=== PATIENT | female | born 1935 | race Caucasian/White ===

== ENCOUNTER 2017-12-30 06:58 | Emergency (ER) | payer MEDICARE, OTHER ==
[~2017-12-30] VITALS: Ht 157.5 cm; Wt 64.0 kg
[~2017-12-30 06:58] MED LIST: DIOV320T PO; MEDR4PAK3 PO; SYNT88TA PO
[2017-12-30 07:08] VITALS: BP 243/110; PULSE 86; RESP 24; TEMP 97.4; O2SAT 100
[2017-12-30] MEDS ORDERED: FLUT1INH5 INH (07:16)
[2017-12-30] MEDS ORDERED: LEVO100T5 PO (07:16)
[2017-12-30] MEDS ORDERED: LOSA100T PO (07:16)
[2017-12-30] MEDS ORDERED: ALBUAER3 INH ×2 (07:17→09:09)
--- NOTE | 2017-12-30 07:20 | PD ---
HPI Chief Complaint: Respiratory Symptoms Time Seen by Provider: 07:12 Travel History International Travel<30 days: No Contact w/Intl Traveler<30days: No Traveled to known affect area: No History of Present Illness HPI Patient is a 82-year-old female who presents the emergency room with complaints of asthma exacerbation. Patient reports that she has history of asthma, reports that for the past week, she has had increased wheezing. Patient reports that she recently developed a dry cough, denies any fever or chills. Patient did try using her nebulizer treatments without any relief of symptoms. Patient reports that nothing is making her asthma exacerbation better or worse. Patient thinks that maybe the weather brings on her asthma exacerbation. Patient reports no chest pain with her shortness of breath. Patient reports that she has never been intubated for asthma exacerbation, the last time she was admitted to the hospital for asthma exacerbation was a few years ago. Patient is a non-smoker, patient with no other complaints at this time. Patient received 125 mg of Solu-Medrol as well as neb treatment by EMS prior to arrival to the emergency room. PFSH Past Medical History Asthma: Yes Heart Rhythm Problems: No Cardiac Catheterization: No Cardiovascular Problems: No High Cholesterol: No Congestive Heart Failure: No COPD: Yes Diabetes: No Endocrine: Yes Genitourinary: No Hypertension: Yes Immune Disorder: No Musculoskeletal: No Neurologic: No Reproductive: No Respiratory: Yes Myocardial Infarction: No Thyroid Disease: Yes (hypothyroid) Past Surgical History Abdominal Surgery: Yes (APPENDECTOMY) Appendectomy: Yes Cardiac Surgery: No Coronary Artery Bypass Graft: No Ear Surgery: No Endocrine Surgery: No Eye Surgery: No Genitourinary Surgery: No Gynecologic Surgery: Yes (HYSTERECTOMY) Hysterectomy: Yes Oral Surgery: No Thoracic Surgery: No Other Surgery: Yes (HEMORRHOIDECTOMY) Social History Alcohol Use: No Tobacco Use: No (QUIT IN THE ) Substance Use: No Allergies-Medications (Allergen,Severity, Reaction): Coded Allergies: Sulfa (Sulfonamide Antibiotics) (Unverified Allergy, Severe, WATER BLISTERS, 12/30/17) Reported Meds & Prescriptions Reported Meds & Active Scripts Active Reported Proair Hfa 8.5 GM Inh (Albuterol Sulfate) 90 Mcg/Act Aer 1 Puff INH Q4H PRN 108 mcg/actuation Arnuity Ellipta (Fluticasone Furoate (Inhalatio) 200 Mcg Inh 1 Inh INH DAILY Levothyroxine (Levothyroxine Sodium) 100 Mcg Tab Unknown Dose PO DAILY Losartan (Losartan Potassium) 100 Mg Tab 100 Mg PO DAILY Review of Systems General / Constitutional: No: Fever, Chills Eyes: No: Visual changes HENT: No: Headaches Cardiovascular: No: Chest Pain or Discomfort Respiratory: Positive: Cough, Shortness of Breath, Wheezing Gastrointestinal: No: Abdominal Pain Genitourinary: No: Dysuria Musculoskeletal: No: Pain Skin: No Rash Neurologic: No: Weakness Psychiatric: No: Depression Endocrine: No: Polydipsia Hematologic/Lymphatic: No: Easy Bruising Physical Exam Narrative GENERAL: Moderate distress SKIN: Focused skin assessment warm/dry. HEAD: Atraumatic. Normocephalic. EYES: Pupils equal and round. No scleral icterus. No injection or drainage. ENT: No nasal bleeding or discharge. Mucous membranes pink and moist. NECK: Trachea midline. No JVD. CARDIOVASCULAR: Regular rate and rhythm. No murmur appreciated. RESPIRATORY: No accessory muscle use. Patient with diffuse wheezing to bilateral lungs. Breath sounds equal bilaterally. GASTROINTESTINAL: Abdomen soft, non-tender, nondistended. Hepatic and splenic margins not palpable. MUSCULOSKELETAL: No obvious deformities. No clubbing. No cyanosis. No edema. NEUROLOGICAL: Awake and alert. No obvious cranial nerve deficits. Motor grossly within normal limits. Normal speech. PSYCHIATRIC: Appropriate mood and affect; insight and judgment normal. Data Data Last Documented VS Vital Signs Date Time Temp Pulse Resp B/P (MAP) Pulse Ox O2 Delivery O2 Flow Rate FiO2 12/30/17 08:16 84 20 182/85 (117) 98 Room Air 12/30/17 08:14 2.00 12/30/17 07:08 97.4 Orders Orders Complete Blood Count With Diff (12/30/17 07:16) Comprehensive Metabolic Panel (12/30/17 07:16) Chest, Single Ap (12/30/17 07:16) Ecg Monitoring (12/30/17 07:16) Iv Access Insert/Monitor (12/30/17 07:16) Oximetry (12/30/17 07:16) Oxygen Administration (12/30/17 07:16) Albuterol-Ipratropium Neb (Duoneb Neb) (12/30/17 07:30) Sodium Chloride 0.9% Flush (Ns Flush) (12/30/17 07:30) Magnesium Sulfate 1 Gm Premix (Magnesium (12/30/17 07:30) Labs Laboratory Tests Test 12/30/17 07:21 White Blood Count 8.4 TH/MM3 Red Blood Count 4.06 MIL/MM3 Hemoglobin 13.3 GM/DL Hematocrit 39.3 % Mean Corpuscular Volume 96.9 FL Mean Corpuscular Hemoglobin 32.8 PG Mean Corpuscular Hemoglobin Concent 33.8 % Red Cell Distribution Width 14.1 % Platelet Count 280 TH/MM3 Mean Platelet Volume 8.1 FL Neutrophils (%) (Auto) 44.1 % Lymphocytes (%) (Auto) 36.3 % Monocytes (%) (Auto) 8.5 % Eosinophils (%) (Auto) 10.5 % Basophils (%) (Auto) 0.6 % Neutrophils # (Auto) 3.7 TH/MM3 Lymphocytes # (Auto) 3.0 TH/MM3 Monocytes # (Auto) 0.7 TH/MM3 Eosinophils # (Auto) 0.9 TH/MM3 Basophils # (Auto) 0.0 TH/MM3 CBC Comment DIFF FINAL Differential Comment Blood Urea Nitrogen 9 MG/DL Creatinine 0.98 MG/DL Random Glucose 107 MG/DL Total Protein 6.9 GM/DL Albumin 3.5 GM/DL Calcium Level 8.8 MG/DL Alkaline Phosphatase 134 U/L Aspartate Amino Transf (AST/SGOT) 20 U/L Alanine Aminotransferase (ALT/SGPT) 20 U/L Total Bilirubin 0.7 MG/DL Sodium Level 141 MEQ/L Potassium Level 3.9 MEQ/L Chloride Level 106 MEQ/L Carbon Dioxide Level 25.7 MEQ/L Anion Gap 9 MEQ/L Estimat Glomerular Filtration Rate 54 ML/MIN [facility] Medical Decision Making Medical Screen Exam Complete: Yes Emergency Medical Condition: Yes Medical Record Reviewed: Yes Interpretation(s) Vital Signs Date Time Temp Pulse Resp B/P (MAP) Pulse Ox O2 Delivery O2 Flow Rate FiO2 12/30/17 07:08 97.4 86 24 243/110 (154) 100 Differential Diagnosis Asthma exacerbation, pneumonia, influenza, viral syndrome Narrative Course Patient is an 82-year-old female who presents the emergency room with complaints of an asthma exacerbation. Symptoms have been ongoing and persistent for the past week. Patient has received 125 mg of IV Solu-Medrol as well as 1 neb treatment by EMS prior to arrival to the emergency room. During the course of the patients emergency department visit, the patients history, examination, and differential diagnosis were reviewed with the patient. The patient was placed on a chute worker with oximetry and frequent blood pressure monitoring. The patient had an IV access obtained and blood work sent for analysis. The patient was initially provided Solu-Medrol 125 mg IV as well as 1 neb treatment. 3 DuoNeb's were ordered in the emergency room along with IV magnesium. The patients laboratory studies were reviewed and remarkable for CBC & BMP Diagram 12/30/17 07:21 Total Protein 6.9, Albumin 3.5, Calcium Level 8.8, Alkaline Phosphatase 134 H, Aspartate Amino Transf (AST/SGOT) 20, Alanine Aminotransferase (ALT/SGPT) 20, Total Bilirubin 0.7 Radiology studies were reviewed and remarkable for Last Impressions Chest X-Ray 12/30/17 0716 Signed Impressions: CONCLUSION: No acute cardiopulmonary disease. Patient reevaluated, patient feeling much at this time. Lungs are clear to auscultation. I reviewed all labs and all studies with patient in detail, patient will follow-up with her primary care doctor and will return to the emergency room as needed. Diagnosis Primary Impression: Asthma exacerbation Qualified Codes: J45.901 - Unspecified asthma with (acute) exacerbation Patient Instructions: General Instructions Additional Instructions: Please take all medications as prescribed Please follow up with your primary care doctor in 2-3 days Return to the ER if symptoms worsen or progress Return to the ER as needed Med/Other Pt SpecificInfo: Prescription(s) given Scripts Azithromycin (Azithromycin) 500 Mg Tab 500 MG PO DAILY for Infection, #5 TAB 0 Refills Prov: Juju Riddle DO 12/30/17 Prednisone (Prednisone) 20 Mg Tab 20 MG PO BID for 5 Days, #10 TAB 0 Refills Prov: Juju Riddle DO 12/30/17 Albuterol 8.5 GM Inh (Proair Hfa 8.5 GM Inh) 90 Mcg/Act Aer 2 PUFF INH Q4-6H Y for SHORTNESS OF BREATH, #1 INHALER 0 Refills 108 mcg/actuation Prov: Juju Riddle DO 12/30/17 Disposition: 01 DISCHARGE HOME Condition: Stable Juju Riddle DO December 30, 2017 07:20
[2017-12-30] MEDS: MAGNESIUM SULFATE 1 GM PREMIX 100 ML IV SCH ×2 (07:22→08:16)
[2017-12-30] MEDS ORDERED: SODIUM CHLORIDE 0.9% FLUSH 10 ML FLUSH IVF PRN (07:30)
[2017-12-30 07:39] LABS: AUTOMATED NEUTROPHIL # 3.7 TH/MM3 (1.8-7.7); BASOPHIL % 0.6 % (0.0-2.0); EOSINOPHIL # 0.9 TH/MM3 (0-0.4); EOSINOPHIL % 10.5 % (0.0-4.0); HEMATOCRIT 39.3 % (35.0-46.0); HEMOGLOBIN 13.3 GM/DL (11.6-15.3); LYMPH % 36.3 % (9.0-44.0); MEAN CELL VOLUME 96.9 FL (80.0-100.0); MEAN CORPUSCULAR HEMOGLOBIN 32.8 PG (27.0-34.0); MEAN CORPUSCULAR HGB CONC 33.8 % (32.0-36.0); MEAN PLATELET VOLUME 8.1 FL (7.0-11.0); MONO % 8.5 % (0.0-8.0); MONOCYTE # 0.7 TH/MM3 (0-0.9); NEUT % 44.1 % (16.0-70.0); PLATELET COUNT 280 TH/MM3 (150-450); RED BLOOD COUNT 4.06 MIL/MM3 (4.00-5.30); RED CELL DISTRIBUTION WIDTH 14.1 % (11.6-17.2); WHITE BLOOD COUNT 8.4 TH/MM3 (4.0-11.0)
[2017-12-30 07:59] LABS: ALBUMIN 3.5 GM/DL (3.4-5.0); ALT (GPT) 20 U/L (10-53); AST (GOT) 20 U/L (15-37); BICARBONATE 25.7 MEQ/L (21.0-32.0); BLOOD UREA NITROGEN 9 MG/DL (7-18); CALCIUM 8.8 MG/DL (8.5-10.1); CHLORIDE 106 MEQ/L (98-107); CREATININE 0.98 MG/DL (0.50-1.00); GLOMERULAR FILTRATION RATE 54 ML/MIN (>89); GLUCOSE,RANDOM 107 MG/DL (74-106); SODIUM (NA) 141 MEQ/L (136-145)
[2017-12-30 08:01] LABS: ALKALINE PHOSPHATASE 134 U/L (45-117); TOTAL BILIRUBIN ADULT 0.7 MG/DL (0.2-1.0); TOTAL PROTEIN 6.9 GM/DL (6.4-8.2)
--- NOTE | 2017-12-30 08:07 | RADRPT ---
EXAM DATE: 12/30/2017 7:46 AM EDT AGE/SEX: 82 years / Female INDICATIONS: Shortness of breath. CLINICAL DATA: This is the patient's initial encounter. Patient reports that signs and symptoms have been present for 1 week and indicates a pain score of 0/10. MEDICAL/SURGICAL HISTORY: Asthma. None. COMPARISON: No prior [facility] exams available for comparison. FINDINGS: A single AP view of the chest demonstrates the lungs to be symmetrically aerated without e vidence of mass, infiltrate or effusion. The cardiomediastinal contours are unremarkable. Osseous s tructures are intact. CONCLUSION: No acute cardiopulmonary disease. Electronically signed by: Shemar Klein MD 12/30/2017 8:06 AM EDT
[2017-12-30] MEDS: RESP: ALBUTEROL 2.5 MG/IPRATROPIUM 0.5 MG NEB (SCH) INH ×2 (08:13→08:14)
[2017-12-30 08:14] VITALS: O2SAT 98
[2017-12-30 08:16] VITALS: BP_SYST 148; BP_SYST 182; BP_DIAS 72; BP_DIAS 85; PULSE 114; PULSE 84; RESP 20; RESP 32; O2SAT 98
[2017-12-30 09:00] VITALS: BP 185/77
[2017-12-30] MEDS ORDERED: AZIT500T2 PO (09:09)
[2017-12-30] MEDS ORDERED: PRED20 PO (09:09)
[2017-12-30] MEDS ORDERED: AZITHROMYCIN 250 MG TAB PO ONE (09:15)
[2017-12-30] MEDS ORDERED: ALBUTEROL SULFATE 90 MCG/ACT HFA 8 GM INHALER INH ONE (10:00)
== END 2017-12-30 10:15 | disposition home or self-care (01) ==
LOC: NEPE 06:58
DX: J45.901 Unspecified asthma with (acute) exacerbation (principal); E03.9 Hypothyroidism, unspecified; I10 Essential (primary) hypertension; Z87.891 Personal history of nicotine dependence
CPT/HCPCS: 71045; 80053; 85025; 94640; 94664; 96365; 96367; 99284; J3475

== ENCOUNTER 2018-03-19 05:38 | Inpatient (IN) ==
[2018-03-19] MEDS ORDERED: MethylPREDNISolone Sod Succinate Inj 125 MG/2 ML Vial IV.PUSH ONE (05:54)
--- NOTE | 2018-03-19 05:54 | ED ---
HPI General Chief Complaint: Shortness of Breath/Dyspnea Stated Complaint: Diff breathing Time Seen by Provider: 03/19/18 05:50 Source: patient Mode of arrival: ambulatory Limitations: no limitations History of Present Illness Patient is a 82-year-old female who says for the last 6 years she has had episodes of reactive airway they diagnosed her with asthma she is been on Flovent as well as Symbicort she has had courses of antibiotics azithromycin plus prednisone from time to time. She is just recently seen Dr. Ortiz a ironworker apprentice who is assessing her in diagnosing her. Patient says for 2 days she has had worsening shortness of breath wheezing not responding to her home inhalers. Patient had been on Symbicort but again she asked to stop that and is now only using Ventolin. pT HAS MODERATE RESP DISTRESS RESPONDING TO NEB IN ROUTE MD Complaint: shortness of breath Onset (ago): day(s) Known history of: asthma Associated symptoms: wheezing Related Data Home Medications Medication Instructions Recorded Confirmed albuterol sulfate [Ventolin HFA] 2 puff INHALATION Q4H PRN 03/19/18 03/19/18 [id number] 1 inh INHALATION DAILY 03/19/18 03/19/18 [Trelegy Ellipta] levothyroxine 75 mcg PO DAILY 03/19/18 03/19/18 losartan 100 mg PO DAILY 03/19/18 03/19/18 Previous Rx's Medication Instructions Recorded levofloxacin 750 mg PO DAILY #4 tab 03/21/18 prednisone 20 mg PO BID #11 tab 03/21/18 Allergies Allergy/AdvReac Type Severity Reaction Status Date / Time Sulfa (Sulfonamide Allergy Severe WATER Unverified 12/30/17 07:10 Antibiotics) BLISTERS Review of Systems ROS: all other systems reviewed are negative [facility] Medical History Medical History Asthma (Acute) Hx of hysterectomy (Acute) Hypothyroidism (Acute) Shortness of breath (Acute) Social History Social History Substance History: No History of Abuse Second Hand Smoke Exposure: No Smoking Status: Former smoker Tobacco Type: Cigarettes How Often Do You Have a Drink Containing Alcohol: Monthly or less Recent Travel in [facility] within the Last 8 Weeks: No Recent Out of Country Travel within the Last 8 Weeks: No Immunization History Tetanus Immunization: <5 Years Hx Influenza Vaccine This Season: Yes Exam Narrative Exam Narrative: GENERAL: PT is in moderate resp distress on [facility] on arrival speaking in halted sentences due to air hunger SKIN: Warm and dry. HEAD: Atraumatic. Normocephalic. EYES: Pupils equal and round. No scleral icterus. No injection or drainage. ENT: No nasal bleeding or discharge. Mucous membranes pink and moist. NECK: Trachea midline. No JVD. CARDIOVASCULAR: Regular rate and rhythm. RESPIRATORY: diffuse wheeze all lung field bilateral MUSCULOSKELETAL: Extremities without clubbing, cyanosis, or edema. No obvious deformities. NEUROLOGICAL: Awake and alert. No obvious cranial nerve deficits. Motor grossly within normal limits. Five out of 5 muscle strength in the arms and legs. Normal speech. PSYCHIATRIC: Appropriate mood and affect; insight and judgment normal. Course Initial Documented Vital Signs Temperature 98.4 F 03/19/18 05:42 Pulse Rate 112 H 03/19/18 05:42 Respiratory Rate 26 H 03/19/18 05:42 Blood Pressure 183/94 H 03/19/18 05:42 Pulse Oximetry 96 03/19/18 05:42 Last Documented Vital Signs Temperature 97.8 F 03/21/18 12:00 Pulse Rate 94 H 03/21/18 12:00 Respiratory Rate 14 03/21/18 12:00 Blood Pressure 135/85 03/21/18 12:00 Pulse Oximetry 94 L 03/21/18 13:18 Medical Decision Making [facility] Narrative Medical decision making narrative: Patient is given [facility] x-ray Solu-Medrol Levaquin IV and will be admitted for reactive airway Differential Diagnosis Differential Diagnosis: Differential diagnosis includes bronchitis versus asthma versus COPD exacerbation versus pneumonia versus reactive airway due to L allergy to the pain on the building Lab Data Result diagrams: 03/19/18 06:00 03/19/18 06:00 Lab Results 03/19/18 03/19/18 03/19/18 Range/Units 06:00 06:00 06:00 WBC 6.8 (4.0-11.0) th/mm3 RBC 4.20 (4.00-5.30) mil/mm3 Hgb 13.8 (11.6-15.3) gm/dL Hct 41.3 (35.0-46.0) % MCV 98.4 (80.0-100.0) fL MCH 32.9 (27.0-34.0) pg MCHC 33.4 (32.0-36.0) % RDW 14.4 (11.6-17.2) % Plt Count 275 (150-450) th/mm3 MPV 8.0 (7.0-11.0) fL Neut % (Auto) 51.4 (16.0-70.0) % Lymph % (Auto) 32.5 (9.0-44.0) % [place] % (Auto) 8.4 H (0.0-8.0) % Eos % (Auto) 7.1 H (0.0-4.0) % Baso % (Auto) 0.6 (0.0-2.0) % Neut # (Auto) 3.5 (1.8-7.7) th/mm3 Lymph # (Auto) 2.2 (1.0-4.8) th/mm3 [place] # (Auto) 0.6 (0.0-0.9) th/mm3 Eos # (Auto) 0.5 H (0.0-0.4) th/mm3 Baso # (Auto) 0.0 (0.0-0.2) th/mm3 WBC Differential . Differential Comment Auto diff final Sodium 142 (136-145) meq/L Potassium 3.9 (3.5-5.1) meq/L Chloride 106 (98-107) meq/L Carbon Dioxide 26.4 (21.0-32.0) meq/L Anion Gap 10 (5-15) meq/L BUN 8 (7-18) mg/dL Creatinine 0.95 (0.50-1.00) mg/dL Estimated GFR 56 L (>89) mL/min Random Glucose 136 H (74-106) mg/dL Calcium 9.3 (8.5-10.1) mg/dL Total Bilirubin 0.7 (0.2-1.0) mg/dL AST 21 (15-37) U/L ALT 17 (10-53) U/L Alkaline Phosphatase 131 H (45-117) U/L B-Natriuretic Peptide 580 H (0-100) pg/mL Total Protein 6.8 (6.4-8.2) g/dL Albumin 3.6 (3.4-5.0) g/dL Imaging Data Radiologist's impression: Chest X-Ray 03/19/18 05:55 CONCLUSION: Clear lungs. Chest CTA 03/19/18 13:55 CONCLUSION: 1. No pulmonary embolus. 2. Mild infiltrate versus scarring focally left upper lobe. 3. Emphysema. 4. Left ventricular enlargement. Coronary artery calcification. Discharge Plan Discharge Disposition Patient Disposition: 01 Discharge Home Discharge Condition Condition: Stable Discharge Order Discharge Orders: Discharge Order (Routine); Ordered 03/21/18 Ordered By: Esme Cordero Discharge Details Anticipated Discharge Date: 03/21/18 Discharge Comment: Prescriptions transmitted to [facility] [address] [place]. Physicians Team ED Provider: Timothy Ortiz Primary Care Provider: Pita Rivers Attending Provider: Keo Otto Other Providers: Delio Ortiz ; [employer] Status ED Status: Left Department Discharge Information Discharge Date/Time: 03/19/18 12:32
[2018-03-19 06:18] LABS: Baso % (Auto) 0.6 % (0.0-2.0); Eos # (Auto) 0.5 th/mm3 (0.0-0.4); Eos % (Auto) 7.1 % (0.0-4.0); Hematocrit 41.3 % (35.0-46.0); Hemoglobin 13.8 gm/dL (11.6-15.3); Lymph # (Auto) 2.2 th/mm3 (1.0-4.8); Lymph % (Auto) 32.5 % (9.0-44.0); Mean Corpuscular HGB Conc 33.4 % (32.0-36.0); Mean Corpuscular Hemoglobin 32.9 pg (27.0-34.0); Mean Corpuscular Volume 98.4 fL (80.0-100.0); Mono # (Auto) 0.6 th/mm3 (0.0-0.9); Mono % (Auto) 8.4 % (0.0-8.0); Neut # (Auto) 3.5 th/mm3 (1.8-7.7); Neut % (Auto) 51.4 % (16.0-70.0); Platelet Count 275 th/mm3 (150-450); Red Cell Distribution Width 14.4 % (11.6-17.2); White Blood Count 6.8 th/mm3 (4.0-11.0)
--- NOTE | 2018-03-19 06:24 | XR ---
EXAM DATE: 03/19/2018 6:19 AM EDT AGE/SEX: 82 years / Female INDICATIONS: . Short of breath. CLINICAL DATA: This is the patient's initial encounter. Patient reports that signs and symptoms have been present for 1 day and indicates a pain score of 0/10. MEDICAL/SURGICAL HISTORY: Asthma. None. COMPARISON: [facility], CHEST SINGLE AP, 12/30/2017. . FINDINGS: Hyperinflation. Clear lungs. Cardiomegaly. Aortic calcification. Osseous structures are intact. CONCLUSION: Clear lungs. Electronically signed by: Uvaldo Cortes MD 03/19/2018 6:22 AM EDT
[2018-03-19 06:33] LABS: Alanine Aminotransferase 17 U/L (10-53); Albumin 3.6 g/dL (3.4-5.0); Anion Gap 10 meq/L (5-15); Aspartate Aminotransferase 21 U/L (15-37); Blood Urea Nitrogen 8 mg/dL (7-18); Calcium 9.3 mg/dL (8.5-10.1); Carbon Dioxide 26.4 meq/L (21.0-32.0); Chloride 106 meq/L (98-107); Glomerular Filtration Rate 56 mL/min (>89); Glucose,Random 136 mg/dL (74-106); Potassium 3.9 meq/L (3.5-5.1); Sodium 142 meq/L (136-145)
[2018-03-19 06:36] LABS: Alkaline Phosphatase 131 U/L (45-117); Total Protein 6.8 g/dL (6.4-8.2)
[2018-03-19] MEDS ORDERED: Bisacodyl 10 MG Supp RECTAL PRN (07:36)
[2018-03-19] MEDS ORDERED: Acetaminophen 325 MG Tablet PO PRN (07:36)
--- NOTE | 2018-03-19 14:24 | P.HP ---
History of Present Illness Service: Hospitalist Primary Care Physician: Pita Rivers MD Chief Complaint: Shortness of breath History of Present Illness: Ms. Ovalle is a pleasant 82-year-old female with a history of hypothyroidism, asthma, COPD who presents to the emergency department due to shortness of breath as well as cough that started 2 nights ago prior to this admission. She reports that she was diagnosed with asthma approximately 8 years ago. She takes Breo Ellipta as well as nebulizer for asthma control. She has been using nebulizer machine very frequently but forgot to take her Breo Ellipta yesterday. This morning she woke up with significant shortness of breath which prompted her to seek medical attention. She reports cough but no fever or chills. No chest pain, abdominal pain. No changes in bowel or bladder habits. On arrival temperature 98.4F, pulse 112, respiration 26, blood pressure 183/94, O2 saturation 96% on 2 L of oxygen. Patient received steroid IV, Levaquin IV in the ED. Past medical history: COPD, asthma, hypothyroidism Past surgical history: Hysterectomy. Social history: She smoked for 20-25 years but quit smoking in 1967. Family history: Sister had lung cancer, father had COPD. - Diagnosis (1) Asthma with COPD with exacerbation (2) Hypothyroidism Review of Systems All other systems reviewed negative except as stated in [facility] - History History Provided By: Patient - Medical History Medical History: Medical History (Last Updated 03/19/18 @ 05:46 by Kristen Fuentes) Asthma Hx of hysterectomy Hypothyroidism Shortness of breath - Surgical History Surgical History: Surgical History (Last Updated 03/19/18 @ 05:46 by Kristen Fuentes) Hx of appendectomy - Tobacco History Second Hand Smoke Exposure: No Tobacco Use In Past 30 Days: No Smoking Status: Former smoker Tobacco Type: Cigarettes - Alcohol History How Often Do You Have a Drink Containing Alcohol: Monthly or less - Substance Use History Substance History: No History of Abuse - Travel History Recent Travel in the [place] Within the Last 8 Weeks: No Recent Travel Out of the Country Within the Last 8 Weeks: No - Immunization History Tetanus Immunization: <5 Years Hx Influenza Vaccine This Season: Yes Medications and Allergies Active Medications: Active Medications Acetaminophen (Tylenol) 650 mg PO Q4H PRN PRN Reason: Temp > 100.4, URIOSTEGUI, Pain 1-5 Al Hydroxide/Mg Hydroxide (Milk Of Magnesia Liq) 30 ml PO Q12H PRN PRN Reason: Mild Constipation Albuterol (Duoneb Neb (Steve)) 1 ampul NEB Q6HR WHILE AWAKE NEB STEVE Albuterol (Duoneb Neb (Prn)) 1 ampul NEB Q4HR NEB PRN PRN Reason: DYSPNEA Bisacodyl (Dulcolax Supp) 10 mg RECTAL DAILY PRN PRN Reason: SEVERE CONSITIPATION Lactulose (Lactulose Liq) 30 ml PO DAILY PRN PRN Reason: SEVERE CONSITIPATION Levofloxacin (Levaquin) 750 mg PO DAILY STEVE Stop: 03/26/18 08:59 Prednisone (Deltasone) 20 mg PO BID STEVE Sennosides (Senokot) 17.2 mg PO Q12H PRN PRN Reason: Moderate Constipation Allergies Allergy/AdvReac Type Severity Reaction Status Date / Time Sulfa (Sulfonamide Allergy Severe WATER Unverified 12/30/17 07:10 Antibiotics) BLISTERS Exam Vital signs: Vital Signs 03/19/18 05:42 03/19/18 05:55 03/19/18 07:41 Temperature 98.4 F Pulse Rate 112 H 103 H 94 H Respiratory Rate 26 H 20 18 Blood Pressure 183/94 H 126/72 Pulse Oximetry 96 96 03/19/18 13:57 Temperature 97.6 F Pulse Rate 91 H Respiratory Rate 18 Blood Pressure 145/75 H Pulse Oximetry 97 Intake & Output 03/18/18 03/19/18 03/19/18 18:59 06:59 18:59 Weight 65.771 kg 64.7 kg Other: Weight On Admission 64.7 kg Narrative: GENERAL: This is a well-nourished, well-developed patient, in no apparent distress. SKIN: No rashes, ecchymoses or lesions. Warm and dry. HEAD: Atraumatic. Normocephalic. No temporal or scalp tenderness. EYES: Pupils equal round and reactive. No injection or drainage. ENT: Nose without bleeding, purulent drainage or septal hematoma. Airway patent. NECK: Trachea midline. No lymphadenopathy. Supple, nontender, no meningeal signs. CARDIOVASCULAR: Regular rate and rhythm without murmurs, gallops, or rubs. No JVD. RESPIRATORY: Moderate air entry. No appreciable wheezing but diminished breath sounds in the lower lung zones. GASTROINTESTINAL: Abdomen soft, non-tender, nondistended. No guarding. MUSCULOSKELETAL: Extremities without clubbing, cyanosis. Bilateral lower extremity edema 1+. Tender to palpation NEUROLOGICAL: Awake and alert. Cranial nerves II through XII intact. No focal neurological deficits. Normal speech. Results - Labs CBC & Chem 7: 03/19/18 06:00 03/19/18 06:00 Labs: Laboratory Results - last 24 hr 03/19/18 03/19/18 03/19/18 06:00 06:00 06:00 WBC 6.8 RBC 4.20 Hgb 13.8 Hct 41.3 MCV 98.4 MCH 32.9 MCHC 33.4 RDW 14.4 Plt Count 275 MPV 8.0 Neut % (Auto) 51.4 Lymph % (Auto) 32.5 Garrett % (Auto) 8.4 H Eos % (Auto) 7.1 H Baso % (Auto) 0.6 Neut # (Auto) 3.5 Lymph # (Auto) 2.2 Garrett # (Auto) 0.6 Eos # (Auto) 0.5 H Baso # (Auto) 0.0 WBC Differential . Differential Comment Auto diff final Sodium 142 Potassium 3.9 Chloride 106 Carbon Dioxide 26.4 Anion Gap 10 BUN 8 Creatinine 0.95 Estimated GFR 56 L Random Glucose 136 H Calcium 9.3 Total Bilirubin 0.7 AST 21 ALT 17 Alkaline Phosphatase 131 H B-Natriuretic Peptide 580 H Total Protein 6.8 Albumin 3.6 - Imaging Impressions Chest X-Ray 03/19/18 05:55 CONCLUSION: Clear lungs. Caprini VTE Risk Assessment Caprini VTE Risk Assessment: Moderate/High Risk (score >= 2) Caprini Risk Assessment Model: Point Value = 1 Point Value = 2 Point Value = 3 Point Value = 5 Age 41-60 Minor surgery BMI > 25 kg/m2 Swollen legs Varicose veins or History of unexplained or recurrent spontaneous Oral contraceptives or hormone replacement Sepsis (< 1 month) Serious lung disease, including pneumonia (< 1 month) Abnormal pulmonary function Acute myocardial infarction Congestive heart failure (< 1 month) History of inflammatory bowel disease Medical patient at bed rest Age 61-74 Arthroscopic surgery Major open surgery (> 45 min) Laparoscopic surgery (> 45 min) Malignancy Confined to bed (> 72 hours) Immobilizing plaster cast Central venous access Age >= 75 History of VTE Family history of VTE Factor V Leiden Prothrombin [id number] Lupus anticoagulant Anticardiolipin antibodies Elevated serum homocysteine Heparin-induced thrombocytopenia Other congenital or acquired thrombophilia Stroke (< 1 month) Elective arthroplasty Hip, pelvis, or leg fracture Acute spinal cord injury (< 1 month) Prophylaxis Regimen: Total Risk Factor Score Risk Level Prophylaxis Regimen 0-1 Low Early ambulation 2 Moderate Order ONE of the following: *Sequential Compression Device (SCD) *Heparin 5000 units SQ BID 3-4 Higher Order ONE of the following medications: *Heparin 5000 units SQ TID *Enoxaparin/Lovenox 40 mg SQ daily (WT < 150 kg, CrCl > 30 mL/min) *Enoxaparin/Lovenox 30 mg SQ daily (WT < 150 kg, CrCl > 10-29 mL/min) *Enoxaparin/Lovenox 30 mg SQ BID (WT < 150 kg, CrCl > 30 mL/min) AND/OR *Sequential Compression Device (SCD) 5 or more Highest Order ONE of the following medications: *Heparin 5000 units SQ TID (Preferred with Epidurals) *Enoxaparin/Lovenox 40 mg SQ daily (WT < 150 kg, CrCl > 30 mL/min) *Enoxaparin/Lovenox 30 mg SQ daily (WT < 150 kg, CrCl > 10-29 mL/min) *Enoxaparin/Lovenox 30 mg SQ BID (WT < 150 kg, CrCl > 30 mL/min) AND *Sequential Compression Device (SCD) Assessment and Plan - Assessment (1) Asthma with COPD with exacerbation Code(s): J44.1 - Chronic obstructive pulmonary disease with (acute) exacerbation ; J45.901 - Unspecified asthma with (acute) exacerbation Status: Acute (2) Hypothyroidism Code(s): E03.9 - Hypothyroidism, unspecified Status: Acute - Plan Ms. Ovalle is a pleasant 82-year-old female with a history of asthma, COPD, hypothyroidism who presented to the emergency department due to 2 day duration of shortness of breath as well as cough. Patient denies any chest pain , fever or chills. Asthma with COPD exacerbation -We will consult drawing box tender Dr. Ortiz -We will initiate DuoNeb scheduled and as needed. -Prednisone 20 mg twice daily and Levaquin 750 mg p.o. daily -Supplemental oxygen as needed to keep O2 saturation around 90%. -Well's score for PE is 4.5 which is moderate risk group. Will obtain CT PE study. Hypothyroidism -Medications are not reconciled yet. Once medications are updated we will continue home medications. Full code. Lovenox.
--- NOTE | 2018-03-19 15:20 | CT ---
EXAM DATE: 03/19/2018 3:12 PM EDT AGE/SEX: 82 years / Female INDICATIONS: Intermittent shortness of breath CLINICAL DATA: This is the patient's initial encounter. Patient reports that signs and symptoms have been present for 1 day and indicates a pain score of 0/10. MEDICAL/SURGICAL HISTORY: Hypothyroidism. Asthma. Hysterectomy. Cholecystectomy. RADIATION DOSE: 6.37 CTDI (mGy) COMPARISON: No prior exams available for comparison. TECHNIQUE: Volumetric scanning was performed using a multi-row detector CT scanner during bolus infu janet of 50 ml Omnipaque 350 (iohexol) nonionic water-soluble contrast as a single exam dose. The kenton a was post processed with a variety of visualization algorithms including full volume maximum intensi ty projection and sliding thin slab reformation. Using automated exposure control and adjustment of the mA and/or kV according to patient size, radiation dose was kept as low as reasonably achievable t o obtain optimal diagnostic quality images. DICOM format image data is available electronically for review and comparison. FINDINGS: There is no pulmonary embolus. Left ventricle appears enlarged. There is coronary artery calcificatio n noted. Mild to moderate emphysema. Mild scarring or infiltrate seen focally in the left upper lobe. No dense or confluent consolidation. No pleural effusion or pneumothorax. There is a small hiatal hernia. CONCLUSION: 1. No pulmonary embolus. 2. Mild infiltrate versus scarring focally left upper lobe. 3. Emphysema. 4. Left ventricular enlargement. Coronary artery calcification. Electronically signed by: Mert Christine MD 03/19/2018 3:18 PM EDT
[2018-03-19] MEDS: Enoxaparin Inj 40 MG/0.4 ML Syringe SQ SCH (17:13)
--- NOTE | 2018-03-19 19:10 | MB ---
cc: Delio Ortiz MD, Arjun D MD DATE: 03/19/2018 REFERRING PHYSICIAN: Dr. Trevon Grey REASON FOR CONSULTATION: COPD exacerbation. HISTORY OF PRESENT ILLNESS: Ms. Ovalle is a pleasant 82-year-old female who has a history of COPD and asthma. She was prescribed Symbicort. She is reluctant to take Symbicort because she has heard that formoterol can kill you. She was getting more short of breath yesterday. I prescribed her Flovent. Over the nighttime, she became more short of breath to the extent that she could not sleep. She was having tightness in the chest and wheezing, cough. No fever, no chest pain. Because of the worsening of her symptoms, she came to the emergency room. She had a workup done. CT of the chest was done, which shows no pulmonary embolism, shows underlying emphysema, left ventricular enlargement and coronary artery calcification. Her CBC shows WBC count is 6.8, hemoglobin 13.8, hematocrit 41.3, MCV 98, platelet count 275. Sodium 142, potassium 3.9, chloride 106, CO2 of 26, BUN 8, creatinine 0.95. PAST MEDICAL HISTORY: Significant for history of COPD, asthma, hypothyroidism, history of hysterectomy. CURRENT MEDICATIONS: 1. Albuterol and Atrovent nebulizer treatment 2. Lovenox 40 mg a day. 3. Lactulose 30 mL 4 grams p.r.n. for constipation 4. Levaquin 750 mg 5. Prednisone 20 mg twice a day. ALLERGIES: SHE IS ALLERGIC TO SULFA AND SHE DOES NOT LIKE TAKING FORMOTEROL SOCIAL HISTORY: She has a history of smoking which she quit a long time ago. No alcohol use. FAMILY HISTORY: Her sister had lung cancer. REVIEW OF SYSTEMS: Normally she is up, around and active. Weight is stable. No DVT or pulmonary embolism. No malignancy. PHYSICAL EXAMINATION: GENERAL: Elderly female, mildly short of breath. VITAL SIGNS: Blood pressure 164/87, heart rate 94, respirations 24, temperature 97.9. HEENT: Pupils are equal and reactive to light. Oral mucosa and nasal mucosa normal. NECK: Supple. JVD not raised. LUNGS: She has bilateral expiratory rhonchi. HEART: S1, S2 normal. ABDOMEN: Benign. EXTREMITIES: No edema. IMPRESSION: 1. Chronic obstructive pulmonary disease with exacerbation. 2. Bronchitis. 3. Hypertension. 4. Hypothyroidism. PLAN: I have discussed with the patient. We will give her Levaquin, nebulizer treatment with albuterol and Atrovent. Continue prednisone. Supplement her oxygen. Subcutaneous Lovenox for deep venous thrombosis prophylaxis. Further treatment will depend on the course in the hospital. Thank you, Dr. Trevon Grey, for this consult. MD ADRIANA Jennings/SA , 06:14 PM , 06:23 PM
[2018-03-19] MEDS: predniSONE 20 MG Tablet PO SCH (20:55)
[2018-03-20] MEDS: predniSONE 20 MG Tablet PO SCH ×2 (08:24→21:53)
[2018-03-20] MEDS: Levothyroxine 75 MCG Tablet PO SCH (08:24)
[2018-03-20] MEDS: levoFLOXacin 750 MG Tablet PO SCH (08:24)
--- NOTE | 2018-03-20 08:44 | P.PN ---
Subjective Interval history: Follow-up for COPD exacerbation. Patient reports feeling slightly better today , however still short of breath with wheezing and dry nonproductive cough. Denies fevers or chills. She is requiring 2 L nasal cannula with O2 saturation 96%. Heart rate slightly elevated, patient denies any palpitations or chest pain. She has no other medical complaints at this time. Physical Exam Vital signs: Vital Signs 03/19/18 13:57 03/19/18 16:00 03/19/18 17:20 Temperature 97.6 F 97.9 F Pulse Rate 91 H 94 H 94 H Respiratory Rate 18 24 26 H Blood Pressure 145/75 H 164/87 H Pulse Oximetry 97 97 03/19/18 19:00 03/19/18 19:35 03/19/18 19:49 Temperature 97.6 F Pulse Rate 118 H 124 H Respiratory Rate 28 H 18 Blood Pressure 160/87 H Pulse Oximetry 95 94 L 95 03/19/18 23:20 03/19/18 23:27 03/20/18 03:33 Temperature 97.9 F Pulse Rate 98 H 114 H 104 H Respiratory Rate 24 17 22 Blood Pressure 130/63 Pulse Oximetry 95 03/20/18 03:48 03/20/18 03:50 03/20/18 07:44 Temperature 97.7 F Pulse Rate 101 H 95 H Respiratory Rate 17 20 Blood Pressure 160/76 H 125/71 Pulse Oximetry 96 95 96 03/20/18 08:28 03/20/18 08:33 Temperature Pulse Rate 101 H Respiratory Rate 20 Blood Pressure Pulse Oximetry 97 Intake & Output 03/19/18 03/20/18 03/20/18 18:59 06:59 18:59 Intake Total 150 / 150 Balance 150 / 150 Weight 64.7 kg Intake: IV 150 / 150 Levaquin 750 mg Premix Inj 150 150 / 150 ML @ 100 mls/hr IV.SIG ONCE ONE Rx#:[id number] Other: # Voids 2 Weight On Admission 64.7 kg Narrative: GENERAL: Well-nourished, well-developed pleasant elderly female patient in [facility]. SKIN: Warm and dry. No rash. HEENT: Normocephalic. Atraumatic. Pupils equal and round. Mucous membranes pink and moist. NECK: Supple. Trachea midline. CARDIOVASCULAR: Regular rate and rhythm. No murmur appreciated. RESPIRATORY: No accessory muscle use. Diffuse wheezing with occasional scattered rhonchi. Breath sounds equal bilaterally. GASTROINTESTINAL: Abdomen soft, non-tender, nondistended. Normoactive bowel sounds x4. MUSCULOSKELETAL: No obvious deformities. Extremities without clubbing, cyanosis , or edema. NEUROLOGICAL: Awake and alert. No obvious cranial nerve deficits. Motor grossly within normal limits. Moving all extremities spontaneously. Normal speech. PSYCHIATRIC: Appropriate mood and affect; insight and judgment normal. Results - Labs CBC & Chem 7: 03/19/18 06:00 03/19/18 06:00 - Imaging Impressions Chest CTA 03/19/18 13:55 CONCLUSION: 1. No pulmonary embolus. 2. Mild infiltrate versus scarring focally left upper lobe. 3. Emphysema. 4. Left ventricular enlargement. Coronary artery calcification. Assessment and Plan - Assessment (1) Asthma with COPD with exacerbation Code(s): J44.1 - Chronic obstructive pulmonary disease with (acute) exacerbation ; J45.901 - Unspecified asthma with (acute) exacerbation Status: Acute (2) Hypothyroidism Code(s): E03.9 - Hypothyroidism, unspecified Status: Acute - Plan Ms. Ovalle is a pleasant 82-year-old female with a history of asthma, COPD, hypothyroidism who presented to the emergency department due to 2 day duration of shortness of breath as well as cough. Patient denies any chest pain , fever or chills. Asthma/COPD exacerbation -Well's score for PE is 4.5 which is moderate risk group, CT-PA negative for PE, showed mild infiltrate LISSA, emphysema -CXR reviewed and unremarkable -Continue bronchodilators with DuoNeb's q6h conor and q4h prn -Continue steroids with prednisone 20mg bid -Continue antibiotics with Levaquin 750 mg p.o. daily -Supplemental oxygen as needed to keep O2 saturation >90%. -Consulted testing shaking shipping Dr. Ortiz, appreciate assistance -Symptoms improving, however not yet ready for discharge Hypothyroidism -Continue patient's levothyroxine Hypertension -continued patient's losartan -monitor BP, adjust antihypertensives as needed Full code. Lovenox. Discharge Planning: Discharge pending further clinical improvement. Likely discharge in 1-2 days.
[2018-03-20] MEDS: Enoxaparin Inj 40 MG/0.4 ML Syringe SQ SCH (17:43)
--- NOTE | 2018-03-20 19:07 | P.PNPL ---
Subjective Interval history: 82 YOWF with COPD Exac, HTN Breathing much better has hoarseness of voice No difficulty swallowing Physical Exam Vital signs: Vital Signs 03/19/18 19:35 03/19/18 19:49 03/19/18 23:20 Temperature 97.6 F Pulse Rate 118 H 124 H 98 H Respiratory Rate 28 H 18 24 Blood Pressure 160/87 H Pulse Oximetry 94 L 95 03/19/18 23:27 03/20/18 03:33 03/20/18 03:48 Temperature 97.9 F Pulse Rate 114 H 104 H Respiratory Rate 17 22 Blood Pressure 130/63 Pulse Oximetry 95 96 03/20/18 03:50 03/20/18 07:44 03/20/18 08:28 Temperature 97.7 F Pulse Rate 101 H 95 H 101 H Respiratory Rate 17 20 20 Blood Pressure 160/76 H 125/71 Pulse Oximetry 95 96 03/20/18 08:33 03/20/18 09:17 03/20/18 11:59 Temperature 97.5 F L Pulse Rate 102 H Respiratory Rate 18 Blood Pressure 139/79 Pulse Oximetry 97 96 03/20/18 15:24 03/20/18 16:23 Temperature 97.7 F Pulse Rate 91 H 91 H Respiratory Rate 16 16 Blood Pressure 126/72 Pulse Oximetry 95 GENERAL: Elderly WF,NAD SKIN: Warm and dry. HEAD: Normocephalic. EYES: No scleral icterus. No injection or drainage. NECK: Supple, trachea midline. No JVD or lymphadenopathy. CARDIOVASCULAR: Regular rate and rhythm without murmurs, gallops, or rubs. RESPIRATORY: Breath sounds equal bilaterally. No accessory muscle use. GASTROINTESTINAL: Abdomen soft, non-tender, nondistended. MUSCULOSKELETAL: No cyanosis, or edema. BACK: Nontender without obvious deformity. No CVA tenderness. Assessment and Plan - Plan IMPRESSION: 1. Chronic obstructive pulmonary disease with exacerbation. 2. Bronchitis. 3. Hypertension. 4. Hypothyroidism. PLAN: Aerosol nebs Cont Abx Wean 02 PO staroids Stable from Pulm standpoint Will FU in office
[2018-03-21] MEDS: Levothyroxine 75 MCG Tablet PO SCH (05:46)
[2018-03-21] MEDS: predniSONE 20 MG Tablet PO SCH (08:49)
[2018-03-21] MEDS: levoFLOXacin 750 MG Tablet PO SCH (08:49)
--- NOTE | 2018-03-21 10:30 | P.PN ---
Subjective Interval history: Follow-up for COPD exacerbation. Patient reports continued improvement. Denies any significant shortness of breath. Still having nonproductive cough. Denies fevers or chills. She states she was wheezing this morning, however much improved after breathing treatment. She is still requiring oxygen, O2 saturation 96% on 2 L nasal cannula. She does not wear oxygen at home. She does have nebulizer and rescue inhaler at home. Physical Exam Vital signs: Vital Signs 03/20/18 11:59 03/20/18 15:24 03/20/18 16:23 Temperature 97.5 F L 97.7 F Pulse Rate 91 H 91 H Respiratory Rate 18 16 16 Blood Pressure 139/79 126/72 Pulse Oximetry 96 95 03/20/18 19:47 03/20/18 20:00 03/20/18 23:53 Temperature 97.9 F 97.7 F Pulse Rate 64 104 H 114 H Respiratory Rate 16 17 18 Blood Pressure 169/77 H 148/83 H Pulse Oximetry 98 92 L 97 03/21/18 03:59 03/21/18 05:03 03/21/18 08:00 Temperature 97.5 F L 97.9 F Pulse Rate 89 104 H Respiratory Rate 18 16 Blood Pressure 163/73 H 197/99 H Pulse Oximetry 96 98 95 03/21/18 08:56 Temperature Pulse Rate 84 Respiratory Rate 16 Blood Pressure Pulse Oximetry 96 Intake & Output 03/20/18 03/21/18 03/21/18 18:59 06:59 18:59 Intake Total 720 / 720 Output Total 700 / 700 Balance 20 / 20 Intake: Oral 720 / 720 Output: Urine 700 / 700 Narrative: GENERAL: Well-nourished, well-developed pleasant elderly female patient in [facility]. SKIN: Warm and dry. No rash. HEENT: Normocephalic. Atraumatic. Pupils equal and round. Mucous membranes pink and moist. NECK: Supple. Trachea midline. CARDIOVASCULAR: Regular rate and rhythm. No murmur appreciated. RESPIRATORY: No accessory muscle use. Minimal expiratory wheezing today, improved. Breath sounds equal bilaterally. GASTROINTESTINAL: Abdomen soft, non-tender, nondistended. Normoactive bowel sounds x4. MUSCULOSKELETAL: No obvious deformities. Extremities without clubbing, cyanosis , or edema. NEUROLOGICAL: Awake and alert. No obvious cranial nerve deficits. Motor grossly within normal limits. Moving all extremities spontaneously. Normal speech. PSYCHIATRIC: Appropriate mood and affect; insight and judgment normal. Results - Labs CBC & Chem 7: 03/19/18 06:00 03/19/18 06:00 - Imaging Chest X-Ray 03/19/18 05:55 CONCLUSION: Clear lungs. Chest CTA 03/19/18 13:55 CONCLUSION: 1. No pulmonary embolus. 2. Mild infiltrate versus scarring focally left upper lobe. 3. Emphysema. 4. Left ventricular enlargement. Coronary artery calcification. Assessment and Plan - Assessment (1) Asthma with COPD with exacerbation Code(s): J44.1 - Chronic obstructive pulmonary disease with (acute) exacerbation ; J45.901 - Unspecified asthma with (acute) exacerbation Status: Acute (2) Hypothyroidism Code(s): E03.9 - Hypothyroidism, unspecified Status: Acute - Plan Ms. Ovalle is a pleasant 82-year-old female with a history of asthma, COPD, hypothyroidism who presented to the emergency department due to 2 day duration of shortness of breath as well as cough. Patient denies any chest pain , fever or chills. Asthma/COPD exacerbation -Well's score for PE is 4.5 which is moderate risk group, CT-PA negative for PE, showed mild infiltrate LISSA, emphysema -CXR reviewed and unremarkable -Continue bronchodilators with DuoNeb's q6h conor and q4h prn -Continue steroids with prednisone 20mg bid -Continue antibiotics with Levaquin 750 mg p.o. daily -Supplemental oxygen as needed to keep O2 saturation >90%. -Consulted patient scheduling manager Dr. Ortiz, appreciate assistance -Symptoms improving, however not yet ready for discharge -Check home O2 walk test Hypothyroidism -Continue patient's levothyroxine Hypertension -continued patient's losartan -monitor BP, adjust antihypertensives as needed Full code. Lovenox. Discharge Planning: Discharge pending further clinical improvement. Checking home oxygen walk test. Possible discharge later today or tomorrow. 1330hrs: Patient passed home O2 walk test, only dropped to 92% on room air. Wheezing resolved. The patient wants to go home. Discharge patient to home Condition on discharge: Stable Heart Healthy Diet as tolerated Ad Rossana activity Rx written: prednisone taper, Levaquin 750mg daily x4days (total 7days) Follow-up with primary care physician and patient scheduling manager Dr. Ortiz
== END 2018-03-21 15:12 | disposition home or self-care (01) ==
LOC: NEPE 05:38 → NEDA 05:38 → NEPFCDU 12:00
PROVIDERS: ADMIT Hospitalist; ATTEND Hospitalist